=== PATIENT | male | born 1990 ===

== ENCOUNTER 2020-05-15 14:10 | Emergency (ER) | payer SELFPAY ==
--- NOTE | 2020-05-15 14:15 | ECG_ITS ---
[facility] Test Date: 2020-05-15 Pat Name: Nayan Kwan Department: Room: Gender: Male Studio Designer: : 1990 Requested By: Yajaira Hunter Order Number: [id number] Schroeder MD: Nati Matthew M.D. Measurements Intervals [place] Rate: 70 P: 80 MA: 215 QRS: 84 QRSD: 99 T: 67 QT: 373 QTc: 403 Interpretive Statements SINUS RHYTHM WITH FIRST DEGREE AV BLOCK ST ELEVATION, PROBABLY EARLY REPOLARIZATION Compared to ECG 05/30/2018 03:06:56 First degree AV block now present Sinus tachycardia no longer present ST (T wave) deviation still present Electronically Signed On 05-16-2020 17:07:41 CDT by Nati Matthew M.D. [id number] f
[2020-05-15 14:20] VITALS: BP 62/37; PULSE 72; RESP 14; TEMP 37.1; O2SAT 97; BMI 23.8
--- NOTE | 2020-05-15 14:25 | CTR_ITS ---
PROCEDURE INFORMATION: Exam: CT Head Without Contrast Exam date and time: 05/15/2020 4:20 PM Age: 29 years old Clinical indication: Other: Syncopy; Additional info: Sycnope TECHNIQUE: Imaging protocol: Computed tomography of the head without contrast. Radiation optimization: All CT scans at this facility use at least one of these dose optimization techniques: automated exposure control; mA and/or kV adjustment per patient size (includes targeted exams where dose is matched to clinical indication); or iterative reconstruction. COMPARISON: CT head wo con* [id number] 11/07/2016 1:03 PM RADIATION DOSE METRICS: Total DLP (mGy-cm): 803.28 FINDINGS: Brain: Normal. No hemorrhage. Unremarkable white matter. No mass effect. Ventricles: Normal. No ventriculomegaly. Bones/joints: Unremarkable. No acute fracture. Sinuses: Mild mucosal thickening in the left sphenoid sinus. The other sinuses are clear. Mastoid air cells: Visualized mastoid air cells are well aerated. Soft tissues: Unremarkable. CT/CT head wo con* [id number] IMPRESSION: 1. No acute intracranial abnormality. Radiation Dose CTDIVOL = (mGy): DLP = 803.28 (mGy-cm)
--- NOTE | 2020-05-15 14:25 | XRR_ITS ---
PROCEDURE INFORMATION: Exam: XR Chest, 1 View Exam date and time: 05/15/2020 2:49 PM Age: 29 years old Clinical indication: Other: Syncope TECHNIQUE: Imaging protocol: XR of the chest Views: 1 view. COMPARISON: CR Chest 1 [place] [id number] 06/02/2016 9:55 PM FINDINGS: Lungs: Unremarkable. No consolidation. Pleural space: Unremarkable. No pleural effusion. No pneumothorax. Heart/Mediastinum: Unremarkable. No cardiomegaly. Bones/joints: Unremarkable. XR/XR chest 1V portable [id number] IMPRESSION: No acute findings.
--- NOTE | 2020-05-15 14:26 | ECG_ITS ---
[facility] Test Date: 2020-05-15 Pat Name: Nayan Kwan Department: Room: Gender: Male Civil Design Specialist: : 1990 Requested By: Yajaira Hunter Order Number: [id number] Schroeder MD: Nati Matthew M.D. Measurements Intervals [place] Rate: 70 P: 80 [place]: 215 QRS: 84 QRSD: 99 T: 67 QT: 373 QTc: 403 Interpretive Statements SINUS RHYTHM WITH FIRST DEGREE AV BLOCK ST ELEVATION, PROBABLY EARLY REPOLARIZATION Compared to ECG 05/30/2018 03:06:56 First degree AV block now present Sinus tachycardia no longer present ST (T wave) deviation still present Electronically Signed On 05-16-2020 17:08:33 CDT by Nati Matthew M.D. [email or web address]/[id number] f
--- NOTE | 2020-05-15 14:29 | W.ED.SYNCOPE ---
HPI - Syncope General: Chief Complaint: Syncope Stated Complaint: syncope Time Seen by Provider: 05/15/20 14:25 Source: patient Mode of arrival: ambulatory Limitations: no limitations History of Present Illness: HPI narrative: 29-year-old male states he had a history of syncopal events. Patient states he is unable Shreya roughly 30 minutes ago and started feeling very lightheaded and passed out and struck his head. Patient is hypotensive here. He states this is been an ongoing problem he states he probably had 10-15 syncopal events in the last year. He has not followed up for this. He denies any chest pain or headache. He states he is starting to feel improved currently. MD complaint: loss of consciousness Associated symptoms: Deny abdominal pain, fever(s), headache(s) or nausea Review of Systems Const: Denies: fever(s), chills, body aches or change in appetite Eyes: Denies: blurry vision or eye discomfort ENMT: Denies: throat pain or dental pain Card: Reports: syncope Resp: Denies: dyspnea GI: Denies: abdominal pain, nausea, vomiting or diarrhea : Denies: dysuria Musc: Denies: neck pain or back pain Skin/Breast: Denies: rash Neuro: Denies: headache(s) Psych: Denies: depression Robbie/Lymph: Denies: easy bruising All/Imm: Denies: urticaria Physical Exam Const: COMMON NORMALS: no acute distress, patient oriented x3 and healthy appearing HENMT: COMMON NORMALS: normocephalic and atraumatic HEAD & SCALP: normocephalic and atraumatic Eye: COMMON NORMALS: Equal, round and reactive pupils present and EOMs intact bilaterally PUPIL: Yes Equal, round and reactive pupils present Neck/C-Spine: COMMON NORMALS: full ROM and supple Chest: COMMONS NORMALS: normal inspection of the chest and normal palpation of entire chest wall Resp: COMMON NORMALS: normal respiratory effort, No retractions, No use of accessory muscles and clear to auscultation bilaterally AUSCULTATION: clear to auscultation bilaterally Cardio: COMMON NORMALS: regular rate, regular rhythm and No murmurs present (Cardio) RATE: regular rate RHYTHM: regular rhythm GI: COMMON NORMALS: Normal to inspection, nondistended, normoactive bowel sounds present, Soft to palpation, non-tender and no masses PALPATION: Yes Soft to palpation Extremity: COMMON NORMALS: normal to inspection and full ROM Neuro: COMMON NORMALS: patient oriented x3, moves all extremities and no focal motor deficits Psych: COMMON NORMALS: mental status grossly normal, Normal thought process present and cooperative THOUGHT PROCESS: Normal thought process present Skin: COMMON NORMALS: no rashes or lesions noted and no wounds GENERAL SKIN EXAM: no rashes or lesions noted Course Vital Signs: Vital signs: Vital Signs Temperature 98.8 F 05/15/20 14:20 Pulse Rate 72 05/15/20 14:20 Respiratory Rate 14 05/15/20 14:20 Blood Pressure 62/37 05/15/20 14:20 Pulse Oximetry 97 05/15/20 14:20 MDM - Syncope MDM Narrative: Medical decision making narrative: District presents here with what appears to be vasovagal as he has had multiple in the past. His blood pressure is much improved here and he feels much improved and is requesting discharge. EKG along with CT head lab works all normal. We will get him a PCP to follow-up with and he is to return if worsening. He understands and agrees to plan. Lab Data: Labs: Lab Results 05/15/20 05/15/20 05/15/20 Range/Units 14:34 14:34 14:34 WBC 9.7 (4.0-10.0) 10^3/ uL RBC 4.73 (4.1-5.3) 10^6/u L Hgb 14.7 (11.7-16.6) g/dL Hct 43.8 (42.0-52.0) % MCV 92.6 (80-94) fL MCH 31.1 (28.0-34.0) pg MCHC 33.6 (30.0-36.0) g/dL RDW 12.3 (12.1-15.1) % Plt Count 251 (130-400) 10^3/c mm MPV 9.4 (7.4-10.4) fL Neut % (Auto) 56.3 % Lymph % (Auto) 33.5 % [place] % (Auto) 8.9 % Eos % (Auto) 0.6 % Baso % (Auto) 0.5 % Neut # (Auto) 5.46 (1.8-7.7) 10^3/u L Lymph # (Auto) 3.3 (0.8-4.8) 10^3/u L [place] # (Auto) 0.9 (0.2-0.9) 10^3/u L Eos # (Auto) 0.1 (0.0-0.8) 10^3/u L Baso # (Auto) 0.1 (0.0-0.1) 10^3/u L Nucleated RBC % (a uto) 0 % Nucleated RBCs # 0.0 /100WBC Sodium 140 (136-145) mmol/L Potassium 3.4 L (3.5-5.1) mmol/L Chloride 103 (98-107) mmol/L Carbon Dioxide 25 (22-29) mmol/L Anion Gap 15.4 (5-19) BUN 14 (6-20) mg/dL Creatinine 1.4 H (0.7-1.2) mg/dL GFR Calculation 59.1 L (90-130) mL/min Glucose 101 (65-115) mg/dL Calculated Osmolal ity 286 (285-295) mOsm/k g Lactate 2.5 H (0.5-2.2) mmol/L Calcium 9.3 (8.5-10.5) mg/dL Total Bilirubin 0.3 (0.15-1.2) mg/dL AST 57 H (0-40) U/L ALT 111 H (0-41) U/L Alkaline Phosphata se 74 (40-130) IU/L Troponin T Baselin e (0-15) ng/L Troponin T 120 Min point [place] (0-15) ng/L Total Protein 7.1 (6.6-8.7) g/dL Albumin 4.5 (3.5-5.2) g/dL Globulin 2.6 (1.3-4.6) g/dL Lipase 13 (13-60) U/L 05/15/20 05/15/20 Range/Units 14:34 16:38 WBC (4.0-10.0) 10^3/ uL RBC (4.1-5.3) 10^6/u L Hgb (11.7-16.6) g/dL Hct (42.0-52.0) % MCV (80-94) fL MCH (28.0-34.0) pg MCHC (30.0-36.0) g/dL RDW (12.1-15.1) % Plt Count (130-400) 10^3/c mm MPV (7.4-10.4) fL Neut % (Auto) % Lymph % (Auto) % [place] % (Auto) % Eos % (Auto) % Baso % (Auto) % Neut # (Auto) (1.8-7.7) 10^3/u L Lymph # (Auto) (0.8-4.8) 10^3/u L [place] # (Auto) (0.2-0.9) 10^3/u L Eos # (Auto) (0.0-0.8) 10^3/u L Baso # (Auto) (0.0-0.1) 10^3/u L Nucleated RBC % (a uto) % Nucleated RBCs # /100WBC Sodium (136-145) mmol/L Potassium (3.5-5.1) mmol/L Chloride (98-107) mmol/L Carbon Dioxide (22-29) mmol/L Anion Gap (5-19) BUN (6-20) mg/dL Creatinine (0.7-1.2) mg/dL GFR Calculation (90-130) mL/min Glucose (65-115) mg/dL Calculated Osmolal ity (285-295) mOsm/k g Lactate (0.5-2.2) mmol/L Calcium (8.5-10.5) mg/dL Total Bilirubin (0.15-1.2) mg/dL AST (0-40) U/L ALT (0-41) U/L Alkaline Phosphata se (40-130) IU/L Troponin T Baselin e 11 (0-15) ng/L Troponin T 120 Min point [place] 10.04 (0-15) ng/L Total Protein (6.6-8.7) g/dL Albumin (3.5-5.2) g/dL Globulin (1.3-4.6) g/dL Lipase (13-60) U/L Imaging Data^: CXR: Radiologist's impression: [address] [address] XRay Report Signed Patient: Nayan Kwan Unit #: [id number] : 1990 Age/Sex: 29 / M ADM Date: 05/15/20 Loc: ER Room/Bed: Attending Dr: Ordering Provider/Ordering MD: Yajaira Hunter MD Date of Service: 05/15/20 Procedure(s): XR chest 1V portable [id number] Accession Number(s): [id number] Report Number: [id number] PROCEDURE INFORMATION: Exam: XR Chest, 1 View Exam date and time: 05/15/2020 2:49 PM Age: 29 years old Clinical indication: Other: Syncope TECHNIQUE: Imaging protocol: XR of the chest Views: 1 view. COMPARISON: CR Chest 1 [place] [id number] 06/02/2016 9:55 PM FINDINGS: Lungs: Unremarkable. No consolidation. Pleural space: Unremarkable. No pleural effusion. No pneumothorax. Heart/Mediastinum: Unremarkable. No cardiomegaly. Bones/joints: Unremarkable. XR/XR chest 1V portable [id number] IMPRESSION: No acute findings. CT Head: Radiologist's impression: [place] [address] CT Scan Report Signed Patient: Nayan Kwan Unit #: [id number] : 1990 Age/Sex: 29 / M ADM Date: 05/15/20 Loc: ER Room/Bed: Attending Dr: Ordering Provider/Ordering MD: Yajaira Hunter MD Date of Service: 05/15/20 Procedure(s): CT head wo con* [id number] Accession Number(s): [id number] Report Number: [id number] PROCEDURE INFORMATION: Exam: CT Head Without Contrast Exam date and time: 05/15/2020 4:20 PM Age: 29 years old Clinical indication: Other: Syncopy; Additional info: Sycnope TECHNIQUE: Imaging protocol: Computed tomography of the head without contrast. Radiation optimization: All CT scans at this facility use at least one of these dose optimization techniques: automated exposure control; mA and/or kV adjustment per patient size (includes targeted exams where dose is matched to clinical indication); or iterative reconstruction. COMPARISON: CT head wo con* [id number] 11/07/2016 1:03 PM RADIATION DOSE METRICS: Total DLP (mGy-cm): 803.28 FINDINGS: Brain: Normal. No hemorrhage. Unremarkable white matter. No mass effect. Ventricles: Normal. No ventriculomegaly. Bones/joints: Unremarkable. No acute fracture. Sinuses: Mild mucosal thickening in the left sphenoid sinus. The other sinuses are clear. Mastoid air cells: Visualized mastoid air cells are well aerated. Soft tissues: Unremarkable. CT/CT head wo con* [id number] IMPRESSION: 1. No acute intracranial abnormality. EKG Data^: EKG 1: Attestation: I personally reviewed and interpreted this EKG as follows: EKG interpretation date: 05/15/20 EKG interpretation time: 14:17 Interpretation: nsr hr [address] or t wave abnormalities qrs 99 [id number] Discharge Plan Discharge Patient Disposition: Home, Self-Care Clinical Impression: Vasovagal syncope Condition: Stable Prescriptions: No Action No Known Home Medications RF: 0 Discharge Orders: Discharge Order (Routine); Ordered 05/15/20 Ordered By: Yajaira Hunter Discharge Diet: Advance as tolerated Discharge Activity: Resume usual activity Patient Instructions: Syncope (ED) Coding Level of Care Code ED Peer Financial Counselor for Chg Fwd Exam Comprehensive
[2020-05-15 14:40] LABS: Basophils # 0.1 10^3/uL (0.0-0.1); Basophils % 0.5 %; Eosinophils # 0.1 10^3/uL (0.0-0.8); Eosinophils % 0.6 %; Hematocrit 43.8 % (42.0-52.0); Hemoglobin 14.7 g/dL (11.7-16.6); Lymphocytes # 3.3 10^3/uL (0.8-4.8); Lymphocytes % 33.5 %; Mean Corpuscular HGB Conc 33.6 g/dL (30.0-36.0); Mean Corpuscular Hemoglobin 31.1 pg (28.0-34.0); Mean Corpuscular Volume 92.6 fL (80-94); Mean Platelet Volume 9.4 fL (7.4-10.4); Monocytes # 0.9 10^3/uL (0.2-0.9); Monocytes % 8.9 %; Neutrophils # 5.46 10^3/uL (1.8-7.7); Neutrophils % 56.3 %; Nucleated Red Blood Cells % 0 %; Platelet Count 251 10^3/cmm (130-400); Red Blood Count 4.73 10^6/uL (4.1-5.3); Red Cell Distribution Width 12.3 % (12.1-15.1); White Blood Count 9.7 10^3/uL (4.0-10.0)
[2020-05-15 15:51] LABS: Alanine Aminotransferase 111 U/L (0-41); Albumin Level 4.5 g/dL (3.5-5.2); Alkaline Phosphatase 74 IU/L (40-130); Anion Gap 15.4 (5-19); Aspartate Amino Transferase 57 U/L (0-40); Blood Urea Nitrogen 14 mg/dL (6-20); Calcium 9.3 mg/dL (8.5-10.5); Carbon Dioxide 25 mmol/L (22-29); Chloride 103 mmol/L (98-107); Globulin 2.6 g/dL (1.3-4.6); Glomerular Filtration Rate 59.1 mL/min (90-130); Glucose 101 mg/dL (65-115); Lactate (Lactic Acid level) 2.5 mmol/L (0.5-2.2); Lipase 13 U/L (13-60); Osmolality Calculated 286 mOsm/kg (285-295); Potassium 3.4 mmol/L (3.5-5.1); Sodium 140 mmol/L (136-145); Total Bilirubin 0.3 mg/dL (0.15-1.2); Total Protein 7.1 g/dL (6.6-8.7)
[2020-05-15] MEDS: sodium chloride 0.9% 1,000 ML 999 ML IV ×2 (16:01→16:07)
[2020-05-15 16:11] LABS: Troponin(5th) Baseline 11 ng/L (0-15)
[2020-05-15 17:01] LABS: Troponin 5 2HR 10.04 ng/L (0-15)
[2020-05-15 17:21] VITALS: BP 112/78; PULSE 68; RESP 17; O2SAT 99
[2020-05-15 17:29] LABS: Troponin 5 2HR Delta -0.96 ABS# (0-10)
--- NOTE | 2020-05-16 12:12 | DCPLANNER ---
propagation manager had message to speak with patient about getting established with a primary care physician. propagation manager called patient, unable to speak with patient at this time, a message was left for patient to return case resource manager phone call.
== END 2020-05-15 17:23 | disposition home or self-care (01) ==
PROVIDERS: Emergency Provider Emergency Medicine
DX: R55 Syncope and collapse (principal)
CPT/HCPCS: 12345; 36415; 70450; 71045; 80053; 83605; 83690; 84484; 85025; 93005; 96360; 96361; 99282; 99284; J7030

== ENCOUNTER 2020-06-09 01:18 | Emergency (ER) | payer SELFPAY ==
[2020-06-09 01:24] VITALS: BP 127/95; PULSE 100; RESP 16; O2SAT 97; BMI 24.9
[2020-06-09 01:33] VITALS: PULSE 104; RESP 16; TEMP 36.9; O2SAT 97
--- NOTE | 2020-06-09 01:35 | ED_ITS ---
HPI - General Adult General: Chief complaint: General Medical Stated complaint: multiple complaints Time Seen by Provider: 06/09/20 01:34 History of Present Illness: HPI narrative: Patient is a 29-year-old male who comes to the ED with abscess. Abscesses started within the last 2 to 3 days. Located in the axillary region on both right and left arms. They are tender, red and warm, but have not come to ahead and drained. Patient says he is had his tetanus shot in the last 3 years. Associated symptoms: Deny chest pain, dyspnea, headache(s), nausea, rash, palpitations or vomiting Review of Systems Const: Denies: fever(s), chills or fatigue Eyes: Denies: change in vision or eye discomfort ENMT: Denies: throat pain, odynophagia, nasal discharge or nasal congestion Card: Denies: chest pain, palpitations, edema, swelling of feet/ankles, dyspnea on exertion or orthopnea Resp: Denies: dyspnea, productive cough or non-productive cough GI: Denies: abdominal pain, nausea, vomiting, diarrhea, constipation or hematochezia : Denies: flank pain, difficulty urinating, dysuria or hematuria Musc: Denies: neck pain, back pain or extremity swelling Skin/Breast: Reports: new lesions; Denies: rash Neuro: Denies: headache(s), numbness in extremities or weakness in extremities Physical Exam Const: COMMON NORMALS: no acute distress, patient oriented x3 and alert GENERAL APPEARANCE: cooperative and comfortable HENMT: COMMON NORMALS: normocephalic HEAD & SCALP: normocephalic MOUTH: Normal oral and palatal mucosa present THROAT: posterior oropharynx normal and uvula midline Neck/C-Spine: COMMON NORMALS: supple GENERAL: Yes normal visual inspection Resp: COMMON NORMALS: normal respiratory effort, No retractions, No use of accessory muscles and clear to auscultation bilaterally AUSCULTATION: clear to auscultation bilaterally Cardio: COMMON NORMALS: regular rate, regular rhythm, S1 normal heart sound present, S2 normal heart sound present, No gallops present (Cardio), No clicks present (Cardio), No murmurs present (Cardio) and Peripheral pulses 2+ throughout RATE: regular rate RHYTHM: regular rhythm HEART SOUNDS: S1 normal heart sound present and S2 normal heart sound present PERIPHERAL PULSES: Peripheral pulses 2+ throughout GI: COMMON NORMALS: Normal to inspection, nondistended, normoactive bowel sounds present, Soft to palpation, non-tender and no masses PALPATION: Yes Soft to palpation : COMMON NORMALS: Yes no CVA tenderness BLADDER/KIDNEY EXAM: Yes no CVA tenderness Back/Pelvis: COMMON NORMALS: no CVA tenderness Extremity: NARRATIVE EXTREMITY EXAM: Patient has 1 small abscess in the left axillary region and one small abscess in the right axillary region. GENERAL: Yes normal exam except as noted Neuro: COMMON NORMALS: patient oriented x3 and moves all extremities SENSORIUM/ORIENTATION: Yes alert Skin: GENERAL SKIN EXAM: dry skin LESIONS: lesion noted axillary lesions Lesion type: Yes nodule Lesion size (cm): 1 (1 cm abscess on left axillary and 1 cm abscess on right axillary.) Lesion location: Right and left axillary Lesion color: Yes red and Yes surrounding erythema Lesion consistency: Yes fluctuent Lesion surface: Yes raised, No pointed, No draining and Yes warm Lesion border: Yes raised and Yes surrounding erythema Lesion tenderness: Yes moderate Lesion finding consistent with: Yes other (Patient has small abscess on left axillary and small abscess on right axillary.) Procedures Abscess I/D Site: upper extremity (Axillary right and left) Side (if applicable): left and right Local Anesthetic: lidocaine 1% and with epi Amount of anesthesia used (mL): 10 Technique: incised with #11 blade Amount of fluid expressed (mL): 2 (Thick whitish-yellow purulent drainage.) Irrigation: No Packing used?: none Course Vital Signs: Vital signs: Vital Signs Temperature 98.4 F 06/09/20 01:33 Pulse Rate 104 H 06/09/20 01:33 Respiratory Rate 16 06/09/20 01:33 Blood Pressure 127/95 06/09/20 01:24 Pulse Oximetry 97 06/09/20 01:33 MDM - General Adult MDM Narrative: Medical decision making narrative: Patient is a 29-year-old male who comes to the ED with abscess on right and left axillary. Abscesses wer e both approximately 1 cm in size and had erythema, fluctuant, warmth and tenderness upon palpation. Bedside ultrasound was performed and abscess pocket of fluid was identified on both the right and left axillary abscess. I&D was performed. Discharge was thick white purulent. Abscess drainage was sent for culture. Patient was discharged and put on a prescription for Bactrim. He was told to return to ED if symptoms worsen or if abscesses reform. Follow-up with PCP in 5 days for reevaluation. Patient understood and agreed with plan. Discharge Plan Discharge Patient Disposition: Home Clinical Impression: Abscess Condition: Stable Prescriptions: New Bactrim DS 800-160 mg tablet 1 tab PO BID 7 Days Qty: 14 RF: 0 No Action No Known Home Medications RF: 0 Discharge Orders: Discharge Order (Routine); Ordered 06/09/20 Ordered By: Trevor Bower Discharge Diet: Regular Discharge Activity: Resume usual activity Patient Instructions: Abscess Incision and Drainage (ED), Abscess (ED) Activity Restrictions/Additional Instructions: Follow-up with medical provider as directed in 5-7 days. Take medications as prescribed. Return to the ER or your medical provider if condition worsens. Please read and understand discharge instructions. If any questions, please ask. Coding Level of Care Code ED Usability Engineer for Iliana Fwd Exam Comprehensive
--- NOTE | 2020-06-09 01:39 | PC.NURSE ---
PT HAS ABSCESS UNDER BILAT ARMS. ABCESS ARE APPROX PEA SIZED AND NOT DRAINING AT THIS TIME. AREA AROUND ABSCESS ARE SLIGHT RED IN COLOR.
[2020-06-09] MEDS: sulfamethoxazole-trimeth DS 160-800 mg Tablet 1 TAB PO (01:57)
[2020-06-09] MEDS: HYDROcodone-acetaminophen 7.5-325 mg Tablet 1 TAB PO ×2 (01:57→02:23)
[2020-06-09 02:22] VITALS: BP 119/69; PULSE 100; RESP 16; O2SAT 97
--- NOTE | 2020-06-09 02:26 | PC.NURSE ---
4X4'S AND FOAM TAPE DRESSING APPLIED TO BILAT AXILARY. SMALL AMOUNT OF DRAINAGE AFTER ABSCESS DRAIN.
== END 2020-06-09 02:27 | disposition home or self-care (01) ==
PROVIDERS: Emergency Provider Physician Assistant
DX: L02.412 Cutaneous abscess of left axilla (principal); L02.411 Cutaneous abscess of right axilla
CPT/HCPCS: 10060; 10061; 12345; 87070; 87075; 87077; 87186; 87205; 99281; 99283

== ENCOUNTER 2020-07-24 18:52 | Inpatient (IN) | payer SELFPAY ==
[2020-07-24 19:02] VITALS: BP 120/82; PULSE 99; RESP 16; TEMP 36.5; O2SAT 98; BMI 24.6
--- NOTE | 2020-07-24 19:35 | W.ED.PSYCH ---
HPI - Psych General: Chief Complaint: Psychiatric Symptoms Stated Complaint: SI Time Seen by Provider: 07/24/20 19:33 Source: patient Mode of arrival: ambulatory Limitations: no limitations History of Present Illness: HPI Narrative: 29-year-old male who states he has been having suicidal thoughts for the last week. He states that he has a plan to hang himself and has attempted. He states he smokes marijuana. Denies any other drug use. He denies any recent alcohol use. He denies take any meds currently. MD complaint: suicidal ideation Associated symptoms: Reports depression and suicidal ideation Review of Systems Const: Denies: fever(s), chills, body aches or change in appetite Eyes: Denies: blurry vision or eye discomfort ENMT: Denies: throat pain or dental pain Card: Denies: chest pain Resp: Denies: dyspnea GI: Denies: abdominal pain, nausea, vomiting or diarrhea : Denies: dysuria Musc: Denies: neck pain or back pain Skin/Breast: Denies: rash Neuro: Denies: headache(s) Psych: Reports: depression and suicidal ideation Robbie/Lymph: Denies: easy bruising All/Imm: Denies: urticaria Physical Exam Const: COMMON NORMALS: no acute distress, patient oriented x3 and healthy appearing HENMT: COMMON NORMALS: normocephalic and atraumatic HEAD & SCALP: normocephalic and atraumatic Eye: COMMON NORMALS: Equal, round and reactive pupils present and EOMs intact bilaterally PUPIL: Yes Equal, round and reactive pupils present Neck/C-Spine: COMMON NORMALS: full ROM and supple Chest: COMMONS NORMALS: normal inspection of the chest and normal palpation of entire chest wall Resp: COMMON NORMALS: normal respiratory effort, No retractions, No use of accessory muscles and clear to auscultation bilaterally AUSCULTATION: clear to auscultation bilaterally Cardio: COMMON NORMALS: regular rate, regular rhythm and No murmurs present (Cardio) RATE: regular rate RHYTHM: regular rhythm GI: COMMON NORMALS: Normal to inspection, nondistended, normoactive bowel sounds present, Soft to palpation, non-tender and no masses PALPATION: Yes Soft to palpation Extremity: COMMON NORMALS: normal to inspection and full ROM Neuro: COMMON NORMALS: patient oriented x3, moves all extremities and no focal motor deficits Psych: COMMON NORMALS: mental status grossly normal, Normal thought process present and cooperative MOOD & AFFECT: Yes depressed mood THOUGHT PROCESS: Normal thought process present Skin: COMMON NORMALS: no rashes or lesions noted and no wounds GENERAL SKIN EXAM: no rashes or lesions noted MDM - Psych MDM Narrative: Medical decision making narrative: Patient presents here with suicidality with a plan to kill himself by hanging. Patient is medically cleared I spoke to psychiatrist and will admit to the psychiatric unit. Patient has been stable while here. Lab Data: Labs: Lab Results 07/24/20 07/24/20 Range/Units 19:25 19:25 WBC 7.5 (4.0-10.0) 10^3/ uL RBC 4.90 (4.1-5.3) 10^6/u L Hgb 14.8 (11.7-16.6) g/dL Hct 46.8 (42.0-52.0) % MCV 95.5 H (80-94) fL MCH 30.2 (28.0-34.0) pg MCHC 31.6 (30.0-36.0) g/dL RDW 12.1 (12.1-15.1) % Plt Count 238 (130-400) 10^3/c mm MPV 10.5 H (7.4-10.4) fL Neut % (Auto) 60.5 % Lymph % (Auto) 30.8 % [place] % (Auto) 6.0 % Eos % (Auto) 2.1 % Baso % (Auto) 0.5 % Neut # (Auto) 4.53 (1.8-7.7) 10^3/u L Lymph # (Auto) 2.3 (0.8-4.8) 10^3/u L [place] # (Auto) 0.5 (0.2-0.9) 10^3/u L Eos # (Auto) 0.2 (0.0-0.8) 10^3/u L Baso # (Auto) 0.0 (0.0-0.1) 10^3/u L Nucleated RBC % (a uto) 0 % Nucleated RBCs # 0.0 /100WBC Sodium 142 (136-145) mmol/L Potassium 4.9 (3.5-5.1) mmol/L Chloride 106 (98-107) mmol/L Carbon Dioxide 30 H (22-29) mmol/L Anion Gap 10.9 (5-19) BUN 11 (6-20) mg/dL Creatinine 0.7 (0.7-1.2) mg/dL GFR Calculation 131.5 H (90-130) mL/min Glucose 95 (65-115) mg/dL Calculated Osmolal ity 293 (285-295) mOsm/k g Calcium 9.2 (8.5-10.5) mg/dL Total Bilirubin 0.2 (0.15-1.2) mg/dL AST 19 (0-40) U/L ALT 15 (0-41) U/L Alkaline Phosphata se 62 (40-130) IU/L Total Protein 7.3 (6.6-8.7) g/dL Albumin 4.3 (3.5-5.2) g/dL Globulin 3.0 (1.3-4.6) g/dL Salicylates < 0.3 L (3-10) mg/dL Acetaminophen < 5.0 L (10-30) ug/mL Ethyl Alcohol < 10 (0-10) mg/dL Discharge Plan Discharge Patient Disposition: Admitted As Inpatient Admit Provider: Miguel Adams Clinical Impression: Depression, Suicidal ideation Condition: Stable Coding Level of Care Code ED Park Aide for Chg Fwd Exam Comprehensive
[2020-07-24 19:49] LABS: Basophils % 0.5 %; Eosinophils # 0.2 10^3/uL (0.0-0.8); Eosinophils % 2.1 %; Hematocrit 46.8 % (42.0-52.0); Hemoglobin 14.8 g/dL (11.7-16.6); Lymphocytes # 2.3 10^3/uL (0.8-4.8); Lymphocytes % 30.8 %; Mean Corpuscular HGB Conc 31.6 g/dL (30.0-36.0); Mean Corpuscular Hemoglobin 30.2 pg (28.0-34.0); Mean Corpuscular Volume 95.5 fL (80-94); Mean Platelet Volume 10.5 fL (7.4-10.4); Monocytes # 0.5 10^3/uL (0.2-0.9); Neutrophils # 4.53 10^3/uL (1.8-7.7); Neutrophils % 60.5 %; Nucleated Red Blood Cells % 0 %; Platelet Count 238 10^3/cmm (130-400); Red Cell Distribution Width 12.1 % (12.1-15.1); White Blood Count 7.5 10^3/uL (4.0-10.0)
[2020-07-24 20:01] LABS: Alanine Aminotransferase 15 U/L (0-41); Albumin Level 4.3 g/dL (3.5-5.2); Alkaline Phosphatase 62 IU/L (40-130); Aspartate Amino Transferase 19 U/L (0-40); Blood Urea Nitrogen 11 mg/dL (6-20); Calcium 9.2 mg/dL (8.5-10.5); Carbon Dioxide 30 mmol/L (22-29); Chloride 106 mmol/L (98-107); Glomerular Filtration Rate 131.5 mL/min (90-130); Glucose 95 mg/dL (65-115); Osmolality Calculated 293 mOsm/kg (285-295); Sodium 142 mmol/L (136-145); Total Bilirubin 0.2 mg/dL (0.15-1.2); Total Protein 7.3 g/dL (6.6-8.7)
[2020-07-24 20:02] LABS: Acetaminophen < 5.0 ug/mL (10-30); Alcohol Level < 10 mg/dL (0-10); Anion Gap 10.9 (5-19); Potassium 4.9 mmol/L (3.5-5.1); Salicylate < 0.3 mg/dL (3-10)
[2020-07-24 20:12] VITALS: BP 130/82; PULSE 87; RESP 16; O2SAT 98
[2020-07-24 20:26] VITALS: BP 103/68; PULSE 97; RESP 17; TEMP 36.6; O2SAT 98
[2020-07-24] MEDS: hyDROXYzine 25 mg Capsule 50 MG PO (21:19)
[2020-07-24] MEDS: acetaminophen 325 mg Tablet 650 MG PO (21:19)
[2020-07-24] MEDS: trazodone 50 mg Tablet PO (21:19)
[2020-07-24 21:44] VITALS: BP 103/68; PULSE 97; RESP 17; TEMP 36.6; O2SAT 98
[2020-07-25 06:00] VITALS: BP 118/77; PULSE 57; RESP 15; TEMP 36.4; O2SAT 97
[2020-07-25 14:00] VITALS: BP 108/61; PULSE 73; RESP 18; TEMP 36.4; O2SAT 98
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
[2020-07-25 16:26] VITALS: BP 108/61; PULSE 73; RESP 18; TEMP 36.4; O2SAT 98
== END 2020-07-25 16:33 | disposition home or self-care (01) | DRG 881 ==
LOC: ER 20:04 → NP 20:07
PROVIDERS: Emergency Medicine; Admitting Provider Psychiatry & Neurology Psychiatry; Visit Provider Psychiatry & Neurology Psychiatry
DX: F32.9 Major depressive disorder, single episode, unspecified (principal); R45.851 Suicidal ideations; F43.25 Adjustment disorder with mixed disturbance of emotions and conduct; F12.10 Cannabis abuse, uncomplicated; Z91.5 Personal history of self-harm; Z59.0 Homelessness
CPT/HCPCS: 12345; 36415; 80053; 80307; 85025; 99284

== ENCOUNTER 2020-08-20 12:09 | Emergency (ER) | payer SELFPAY ==
[2020-08-20 12:13] VITALS: BP 143/78; PULSE 100; RESP 18; TEMP 36.7; O2SAT 97; BMI 24.0
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
[2020-08-20] MEDS: naproxen 500 mg Tablet PO (13:04)
[2020-08-20 13:50] VITALS: BP 118/76; PULSE 96; RESP 16; O2SAT 100
--- NOTE | 2020-08-21 10:16 | DCPLANNER ---
amusement centre manager had message to speak with patient about getting established with a primary care physician. amusement centre manager called phone number [phone], unable to speak with patient at this time, a voicemail was left for patient to return immigration case manager phone call.
== END 2020-08-20 13:52 | disposition home or self-care (01) ==
PROVIDERS: Emergency Provider Nurse Practitioner Family
DX: S50.02XA Contusion of left elbow, initial encounter (principal); Y04.2XXA Assault by strike against or bumped into by another person, initial encounter
CPT/HCPCS: 12345; 73080; 99281; 99283

== ENCOUNTER 2020-08-22 05:56 | Emergency (ER) | payer SELFPAY ==
[2020-08-22 05:59] VITALS: BP 150/98; PULSE 69; RESP 18; TEMP 36.4; O2SAT 97; BMI 24.0
--- NOTE | 2020-08-22 06:15 | W.ED.DENTAL ---
HPI - Dental/Oral General: Chief complaint: Dental/Oral Stated complaint: abcess tooth Time Seen by Provider: 08/22/20 06:14 History of Present Illness: HPI Narrative: 30-year-old male complaining of a left upper premolar that is abscessed and painful. Started within the last day or 2. He is not had any fever sweats chills this is been extremely tender and painful. MD Complaint: tooth pain Teeth map: 1. Onset (ago): day(s) Duration: constant Severity: moderate Relieving factors: nothing Exacerbating factors: nothing Context: history of dental caries and poor dental care Associated symptoms: Reports gum swelling; Denies ear or mastoid pain, fever(s), odynophagia, sore throat or tongue swelling Review of Systems Const: Denies: fever(s), chills, body aches, change in appetite, fatigue or malaise ENMT: Denies: throat pain, odynophagia, ear or mastoid pain, nasal discharge or nasal congestion Card: Denies: chest pain, edema, dyspnea on exertion or orthopnea Resp: Denies: dyspnea, productive cough or non-productive cough GI: Denies: abdominal pain, nausea, vomiting, hematemesis, coffee ground emesis, diarrhea, constipation, bloating, hematochezia or melena : Denies: flank pain, dysuria, urinary frequency or urinary urgency All/Imm: Denies: tongue swelling PFSH ED PFSH: Social History Current gender identity: Male Physical Exam Const: COMMON NORMALS: no acute distress ORIENTATION/CONSCIOUSNESS: Yes awake, Yes oriented to person, Yes oriented to place and Yes oriented to time HENMT: COMMON NORMALS: normocephalic, atraumatic and hearing grossly normal bilaterally HEAD & SCALP: normocephalic and atraumatic Neck/C-Spine: COMMON NORMALS: no JVD Lymph: LYMPHATIC: no lymphadenopathy noted and no lymphedema noted Resp: COMMON NORMALS: normal respiratory effort, No retractions, No use of accessory muscles and clear to auscultation bilaterally AUSCULTATION: clear to auscultation bilaterally Cardio: COMMON NORMALS: no JVD, regular rate, regular rhythm and No murmurs present (Cardio) RATE: regular rate RHYTHM: regular rhythm Neuro: SENSORIUM/ORIENTATION: Yes oriented to person, Yes oriented to place and Yes oriented to time Course Vital Signs: Vital signs: Vital Signs Temperature 97.6 F 08/22/20 05:59 Pulse Rate 54 L 08/22/20 06:55 Respiratory Rate 18 08/22/20 05:59 Blood Pressure 137/95 08/22/20 06:55 Pulse Oximetry 99 08/22/20 06:55 MDM - Dental/Oral MDM Narrative: Medical decision making narrative: Start on antibiotics. Patient sleeping in room when I came in the room. There is no lymphadenopathy. Encouraged him to follow-up with the dentist as soon is possible to switch him to a different anti-inflammatory as well for pain control. Discharge Plan Discharge Patient Disposition: Home Clinical Impression: Dental abscess, Dental caries Condition: Stable Prescriptions: New Augmentin 875-125 mg tablet 1 tab PO BID 10 Days Qty: 20 RF: 0 diclofenac sodium 75 mg tablet,delayed release (DR/EC) 75 mg PO Q12H PRN (Reason: pain) Qty: 20 RF: 0 Discontinued naproxen 500 mg tablet 500 mg PO BID PRN (Reason: pain) Qty: 30 RF: 0 Discharge Orders: Discharge Order (Routine); Ordered 08/22/20 Ordered By: Jc Jaquez Discharge Diet: Soft Mechanical Discharge Activity: Resume usual activity Discharge Date/Time: 08/22/20 06:56 Coding Level of Care Code ED Upholstery Covers Inspector for Iliana Martin
[2020-08-22 06:40] VITALS: BP 140/97; PULSE 59; O2SAT 99
[2020-08-22 06:55] VITALS: BP 137/95; PULSE 54; O2SAT 99
== END 2020-08-22 06:56 | disposition home or self-care (01) ==
PROVIDERS: Emergency Provider Family Medicine
DX: K04.7 Periapical abscess without sinus (principal); K02.9 Dental caries, unspecified
CPT/HCPCS: 12345; 99281; 99282